=== PATIENT | female | born 1945 | race Hispanic/Latino ===

== ENCOUNTER 2019-06-16 12:14 | Inpatient (IN) | payer MEDICARE ==
[2019-06-16] VITALS (8 sets, daily range): BP systolic 115–178; BP diastolic 41–89
[~2019-06-16] VITALS: Ht 152.4 cm; Wt 61.4 kg
[~2019-06-16 12:14] MED LIST: VASOTEC5 MG PO
--- NOTE | 2019-06-16 12:27 | NUR ---
PT TO ROOM VIA WC
[2019-06-16 12:59] LABS: HEMATOCRIT 35.4 % (37.0-47.0); HEMOGLOBIN 11.1 g/dl (12.0-16.0); IMMATURE GRANULOCYTES 0.2 % (0.0-5.0); MEAN CELL VOLUME 86.8 fL CALC (80.0-100.0); MEAN CORPUSCULAR HGB 27.2 pG CALC (26.0-32.0); MEAN CORPUSCULAR HGB CONC 31.4 g/L CALC (32.0-36.0); NEUT# 3.06 thou/uL (2.00-7.15); RED BLOOD COUNT 4.08 mill/uL (4.20-5.60); RED CELL DISTRI WIDTH 13.3 % (11.5-15.5)
[2019-06-16 13:17] LABS: ALBUMIN 3.8 g/dL (3.2-5.0); CREATININE 1.4 mg/dL (0.5-1.0)
[2019-06-16 13:19] LABS: BILIRUBIN, TOTAL 0.4 mg/dL (0.0-1.4); POTASSIUM 5.1 mmol/l (3.5-5.1)
--- NOTE | 2019-06-16 13:25 | NUR ---
PATIENT ALERT AND ORIENTED TO SELF AND PLACE UNABLE TO RECALL DATE AND AGE. ABLE TO FOLLOW ALL COMMANDS. NO ATAXIA NOTED. CLEAR SPEECH. PATIENT NOTED TO HAVE NO PUPIL REACTION TO RIGHT EYE. PATIENT REPORTS PROBLEMS WITH RIGHT EYE AND WAS TOLD BY PCP TO FOLLOW UP WITH OPHTHAMOLOGIST, PATIENT DID NOT FOLLOW UP. NIH 1 AT THIS TIME. WILL CONTINUE TO MONITOR. PATIENT.
[2019-06-16] MEDS ORDERED: GLIPIZIDE5 MG PO (13:27)
[2019-06-16] MEDS ORDERED: LOSARTAN POTASS50 MG PO (13:27)
[2019-06-16] MEDS ORDERED: METOPROL TAR25 MG PO (13:28)
[2019-06-16] MEDS ORDERED: PIOGLITAZONE HC30 MG PO (13:29)
[2019-06-16] MEDS ORDERED: REMERON15 MG PO (13:29)
--- NOTE | 2019-06-16 14:35 | NUR ---
AT BEDSIDE TO DISCUSS RESULTS AND PLAN OF CARE.
--- NOTE | 2019-06-16 14:57 | NUR ---
Playground Aide contacted by [place] [facility] [place] for Inpatient/Observational status recommendation - Playground Aide reviewed Patient and based on information available to clinical writer at this time, Patient meets Observational criteria- ED UPPER [employer]ATH[employer] CUTTER notified of this recommendation and she will relay this to ED MD.
--- NOTE | 2019-06-16 15:19 | NUR ---
PATIENT RESTING ON STRETCHER, ALERT NO SIGNS OF DISTRESS. DAUGHTER AT BEDSIDE. INFORMED OF WAIT TIME FOR ADMIT. VERBAL UNDERSTANDING, WILL CONTINUE TO MONITOR.
--- NOTE | 2019-06-16 15:50 | NUR ---
REPORT CALLED TO MAGY PACE.
--- NOTE | 2019-06-16 16:10 | NUR ---
PATIENT TRANSPORTED TO ICU VIA STRETCHER WITH SPIDER ASSEMBLER IN PLACE. MAGY PACE AWARE OF PATIENT ARRIVAL TO ROOM. BELONGINGS SENT WITH PATIENT CARE RELINQUISHED.
--- NOTE | 2019-06-16 17:00 | NUR ---
PT ARRIVES TO ROOM 6 VIA STRETCHER FROM ER ACCOMPANIED BY ALEXI BHATTI. PT IS ALERT AND ORIENTED X 3, BULGARIAN ONLY. LUNGS CLEAR, RA. SKIN INTACT. PT WAS SEEN BY DR PLUMMER SHORTLY AFTER HER ARRIVAL, HE IS CONCERNED ABOUT PREVIOUS TIA AND POSSIBLE CVA. PT ANSWERS ADMISSION QUESTIONS APPROPRIATELY, NO EVIDENCE OF DISTRESS.
--- NOTE | 2019-06-16 19:00 | NUR ---
BEDSIDE REPORT RECEIVED FROM MAGY PACE. PT RESTING IN BED SEMI FOWLERS WITH DAUGHTER AT BEDSIDE; ALERT AND ORIENTED X 3. DENIES PAIN. RESPIRATIONS EVEN AND UNLABORED ON ROOM AIR. PLAN OF CARE REVIEWED WITH PT AND DAUGHTER; PT MOSTLY [place] SPEAKING; DAUGHTER DOES SPEAK KOREAN. ENCOURAGED TO VERBALIZE CONCERNS. STATES UNDERSTANDING. SAFETY MEASURES IN PLACE. CALL LIGHT WITHIN REACH.
--- NOTE | 2019-06-16 19:15 | NUR ---
ASSESSMENT COMPLETED AND WNL; NIH 0. EM HOSE INTACT. IV SITE TO LAC APPEARS HEATLHY AND FLUSHES. VSS.
--- NOTE | 2019-06-16 21:50 | NUR ---
PT SITTING UP TALKING ON CELL PHONE. TOOK HS MEDICATIONS WITHOUT DIFFICULTY. 1 UNIT OF NOVOLOG GIVEN FOR ACCU CHECK OF 181.
--- NOTE | 2019-06-17 00:04 | NUR ---
PT ASLEEP WITH NO SIGNS OF DISTRESS. RESPIRATIONS EVEN AND UNLABORED ON ROOM AIR. AWAKENS TO VERBAL STIMULI; NEURO CHECK IS UNCHANGED. DAUGHTER REMAINS AT BEDSIDE. VSS. SAFETY MEASURES IN PLACE. CALL LIGHT WITHIN REACH.
[2019-06-17 01:30] VITALS: BP 137/74
--- NOTE | 2019-06-17 02:33 | NUR ---
PT UP TO BATHROOM WITH STAND BY ASSIST. NO ACUTE CHANGES IN CONDITION. NO REQUESTS OR CONCERNS AT THIS TIME. NSR ON TELEMETRY HEART RATE IN THE 60S.
[2019-06-17 03:30] VITALS: BP 146/64
--- NOTE | 2019-06-17 04:48 | NUR ---
LAB AT BEDSIDE.
[2019-06-17 05:30] VITALS: BP 153/53
--- NOTE | 2019-06-17 08:00 | NUR ---
PT SEEN AWAKE, ALERT, ORIENTED X 3, DAUGHTER AT BEDSIDE. LUNGS CLEAR, RA. ABDOMEN SOFT, NONTENDER, BM LAST NIGHT. NO WEAKNESS NOTED, NO COMPLAINT OF DIZZINESS EXCEPT WHEN SHE AMBULATES.
[2019-06-17 10:14] VITALS: BP 172/93
--- NOTE | 2019-06-17 12:29 | NUR ---
PT WILL BE GOING TO MRI SOON. NO CHANGE IN STATUS, PT REMAINS SYMPTOM-FREE. NO MORE DIZZINESS WITH AMBULATION. FAMILY AT BEDSIDE.
--- NOTE | 2019-06-17 12:51 | NUR ---
PT ON HER WAY TO MRI AT THIS TIME.
[2019-06-17] MEDS ORDERED: ZITHROMAX500 MG PO (15:40)
[2019-06-17] MEDS ORDERED: MECLIZINE25 MG PO (15:40)
--- NOTE | 2019-06-17 16:09 | NUR ---
PT HAS BEEN DISCHARGED TO HOME. PT AND DAUGHTER VERBALIZED UNDERSTANDING OF DC INSTRUCTIONS, TAKEN BY WHEELCHAIR TO VEHICLE. PT LEAVES [facility] IN STABLE CONDITION, PROVIDED INFORMATION REGARDING DIZZINESS AND POSSIBLE STROKE.
== END 2019-06-17 14:10 | disposition home or self-care (01) | DRG 149 ==
LOC: ED 12:14 → ED-I 14:46 → ED 14:59 → ICU 15:00
PROVIDERS: Family Medicine; ADMIT Internal Medicine; ATTEND Internal Medicine
DX: H83.01 Labyrinthitis, right ear (principal); E11.9 Type 2 diabetes mellitus without complications; I10 Essential (primary) hypertension; E78.5 Hyperlipidemia, unspecified; Z79.4 Long term (current) use of insulin